=== PATIENT | female | born 1985 | race Hispanic/Latino ===

== ENCOUNTER 2018-02-21 14:04 | Emergency (ER) | payer OTHER ==
[2018-02-21 14:05] VITALS: BMI 24.0
[2018-02-21 14:38] VITALS: RESP 18
[2018-02-21 16:38] LABS: SQUAMOUS EPITHIAL 7 /hpf (0-5); URINE AMORPHOUS SEDIMENT FEW /ul (<OCC); URINE BACTERIA OCC (<OCC); URINE BILIRUBIN NEGATIVE (NEGATIVE); URINE BLOOD NEGATIVE (NEGATIVE); URINE CLARITY Hazy (Clear); URINE COLOR Yellow (YELLOW); URINE GLUCOSE (UA) NORMAL (Normal); URINE LEUKOCYTE ESTERASE NEG Leu/uL (Negative); URINE PROTEIN NEGATIVE (NEGATIVE); URINE UROBILINOGEN NORMAL mg/dL (0.2-1.0)
--- NOTE | 2018-02-21 17:41 | C.PDOC ---
History Of Present Illness <Regina Peña - Last Filed: 02/21/18 19:08> <Juan Donohue - Last Filed: 02/21/18 20:21> 32-year-old [id number] female, currently 15 weeks , presents to the ED complaining of abdominal cramping that began today. Of note, patient was walking in slippers on Tuesday and slipped, falling backward onto her buttocks. At the time she experienced some mild neck and back pain, which is now improving. The abdominal cramping developed today, so patient called her OB who referred her to the ED. She denies any associated vaginal bleeding, nausea, vomiting, or other injuries. [employer]: Jem Maurice (Regina Peña) History Per: Patient History/Exam Limitations: no limitations Onset/Duration Of Symptoms: Days Current Symptoms Are (Timing): Still Present <Regina Peña - Last Filed: 02/21/18 19:08> <Juan Donohue - Last Filed: 02/21/18 20:21> Time Seen by Provider: 02/21/18 15:56 Chief Complaint (Nursing): Back Pain Past Medical History Reviewed: Historical Data, Nursing Documentation, Vital Signs - Medical History PMH: Denies: Depression Surgical History: Denies: Pacemaker Family History: States: No Known Family Hx - Social History Hx Tobacco Use: No Hx Alcohol Use: No Hx Substance Use: No - Immunization History Hx Tetanus Toxoid Vaccination: No Hx Influenza Vaccination: No Hx Pneumococcal Vaccination: No <Regina Peña - Last Filed: 02/21/18 19:08> Vital Signs: Last Vital Signs Temp 98.4 F 02/21/18 14:32 Pulse 100 H 02/21/18 14:32 Resp 18 02/21/18 14:32 BP 110/71 02/21/18 14:32 Pulse Ox 100 02/21/18 19:11 - [facility] Procedures C.A.T. SCAN OF ABDOMEN (02/21/15) PERCUTAN NEEDLE BIOPSY OF BREAST (10/25/12) PERCUTAN NEEDLE BX OF LIVER (02/21/15) Review Of Systems Except As Marked, All Systems Reviewed And Found Negative. Gastrointestinal: Positive for: Abdominal Pain. Negative for: Nausea, Vomiting Musculoskeletal: Positive for: Neck Pain, Back Pain. Negative for: Arm Pain, Leg Pain Skin: Negative for: Lesions Neurological: Negative for: Weakness, Numbness <Regina Peña - Last Filed: 02/21/18 19:08> Physical Exam - Physical Exam Appears: Non-toxic, No Acute Distress Skin: Normal Color, Warm, Dry Head: Atraumatic, Normacephalic Eye(s): bilateral: Normal Inspection, PERRL, EOMI Nose: Normal Oral Mucosa: Moist Neck: Normal ROM, No Midline Cervical Tenderness, No Paracervical Tenderness, Supple Chest: Symmetrical Cardiovascular: Rhythm Regular, No Murmur Respiratory: Normal Breath Sounds, No Rales, No Rhonchi, No Wheezing Gastrointestinal/Abdominal: Soft, No Tenderness, No Guarding Back: Normal Inspection, No CVA Tenderness, No Vertebral Tenderness Extremity: Bilateral: Atraumatic, Normal Color And Temperature, Normal ROM Pulses: Left Radial: Normal, Right Radial: Normal Neurological/Psych: Oriented x3, Normal Speech <Regina Peña - Last Filed: 02/21/18 19:08> ED Course And Treatment O2 Sat by Pulse Oximetry: 100 (RA) Pulse Ox Interpretation: Normal <Regina Peña - Last Filed: 02/21/18 19:08> Pulse Ox Interpretation: Normal Reevaluation Time: 20:20 Reassessment Condition: Improved <Juan Donohue - Last Filed: 02/21/18 20:21> Medical Decision Making <Regina Peña - Last Filed: 02/21/18 19:08> <Juan Donohue - Last Filed: 02/21/18 20:21> Medical Decision Making: Time: 16:02 Initial Plan: --Urinalysis --Transvaginal US UA reviewed, (-) leuks, WBC, and RBC. UA is negative for UTI. Patient refusing pain medcation at this time. 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 - Scribe Statement The provider has reviewed the documentation as recorded by the Scribe (Kinza Boyd) <Regina Peña - Last Filed: 02/21/18 19:08> <Juan Donohue - Last Filed: 02/21/18 20:21> - Scribe Statement All medical record entries made by the Scribe were at my direction and personally dictated by me. I have reviewed the chart and agree that the record accurately reflects my personal performance of the history, physical exam, medical decision making, and the department course for this patient. I have also personally directed, reviewed, and agree with the discharge instructions and disposition. (Regina Peña) Physician Patient Turnover Patient Signed Over To: Juan Donohue Handoff Comments: Pending Ultrasound results and re-exam, <Regina Peña - Last Filed: 02/21/18 19:08>
--- NOTE | 2018-02-21 20:03 | US ---
EXAM: US Uterus, Limited EXAM DATE/TIME: Exam ordered 02/21/2018 4:02 PM CLINICAL HISTORY: 32 years old, female; Pain; Other: Pelvic pain; Gestational age or lmp: 2-5-18; ; Additional info: Preg, abd pain, trauma TECHNIQUE: Real-time ultrasound of the maternal uterus (limited) with image documentation. COMPARISON: No relevant prior studies available. FINDINGS: Biometry BPD = [3.14 cm]; Estimated Menstrual Age = [15 w 6 d]; Range = [+/- 14 W5D-17 W0D] HC = [11.54 cm]; Estimated Menstrual Age = [15 w 5 d]; Range = [+/- 14 W3D-16 W6D] AC = [9.25 cm]; Estimated Menstrual Age = [15 w 3 d]; Range = [+/- 13 W5D-17 W1D] FL = [1.83 cm]; Estimated Menstrual Age = [15 w 3 d]; Range = [+/- 14 W0D-16 W6D] HC/AC Ratio = [1.25] normal 1.06-1.36 EFW = 124 g plus or -18 g (4 ounces plus or minus one ounce). 61st percentile HOLLIS= qualitatively normal Placenta: Asymmetric partial placenta previa HR =[142 bpm] Cervix: Closed and 3.8 cm in length Survey - not performed IMPRESSION: 1. Single live intrauterine with an estimated menstrual age of 15 weeks and 4 days plus or minus one week and one day. Expected date of delivery 08/11/2018 2. No evidence of retroplacental hemorrhage 3. Asymmetric partial placenta previa
[2018-02-21 20:31] VITALS: BP 108/69; PULSE 74; TEMP 98; O2SAT 99
== END 2018-02-21 20:31 | disposition home or self-care (01) ==
LOC: C.ER 14:04
DX: O9A.212 Injury, poisoning and certain other consequences of external causes complicating pregnancy, second trimester (principal); S39.91XA Unspecified injury of abdomen, initial encounter; W01.0XXA Fall on same level from slipping, tripping and stumbling without subsequent striking against object, initial encounter; Z3A.15 15 weeks gestation of pregnancy